=== PATIENT | female | born 2000 | race Caucasian/White ===

== ENCOUNTER 2022-05-05 14:59 | Outpatient (CLI) | payer OTHER, SELFPAY | END 2022-05-05 15:00 | disposition home or self-care (01) | LOC: RAD 15:03 | PROVIDERS: Visit Provider Family Medicine | DX: Z82.41 Family history of sudden cardiac death (principal); Z82.49 Family history of ischemic heart disease and other diseases of the circulatory system | CPT/HCPCS: 93306 ==